=== PATIENT | male | born 1990 | race Native Hawaiian/Other Pacific Islander ===

== ENCOUNTER 2017-08-31 12:14 | Outpatient (CLI) | payer OTHER ==
[2017-08-31 13:10] LABS: HEMATOCRIT 47.2 % (36-54); HEMOGLOBIN 15.5 g/dL (14.0-18.0); LYMPHOCYTES % (AUTO) 42.1 % (20.5-51.5); MEAN CORPUSCULAR HEMOGLOBIN 29 pg (27-31); MEAN CORPUSCULAR HGB CONC 33 % (32-36); MEAN CORPUSCULAR VOLUME 89 fL (79.0-98.0); NEUTROPHILS % (AUTO) 46.5 % (40.0-70.0); PLATELET COUNT (AUTO) 238 K/uL (130-430); RED BLOOD CELL COUNT(AUTO) 5.29 MIL/uL (4.2-6.2); RED CELL DISTRIBUTION WIDTH 11.4 % (9.0-15.0); WHITE BLOOD COUNT (AUTO) 6.5 K/uL (4.8-10.8)
[2017-08-31 13:11] LABS: BASOPHILS % (AUTO) 0.3 % (0.0-2.0); EOSINOPHILS # (AUTO) 0.2 K/uL (0.0-0.4); EOSINOPHILS % (AUTO) 2.5 % (0.0-4.0); LYMPHOCYTES # (AUTO) 2.8 K/uL (1.0-5.5); MONOCYTES # (AUTO) 0.6 K/uL (0.0-1.0); MONOCYTES % (AUTO) 8.6 % (1.7-9.3); NEUTROPHILS # (AUTO) 2.9 K/uL (1.8-7.7)
[2017-08-31 14:27] LABS: POTASSIUM 3.9 mmol/L (3.5-5.1)
[2017-08-31 14:28] LABS: ALBUMIN 3.7 g/dL (3.4-4.8); CALCIUM 9.1 mg/dL (8.4-11.0); CREATININE 0.77 mg/dL (0.55-1.30); TOTAL BILIRUBIN 0.5 mg/dL (0.0-1.0)
[2017-08-31 14:40] LABS: THYROID STIMULATING HORMONE 1.62 uIu/mL (0.34-4.82)
== END 2017-08-31 19:37 | disposition home or self-care (01) ==
LOC: SLB 12:14
PROVIDERS: ATTEND Family Medicine
DX: H66.001 Acute suppurative otitis media without spontaneous rupture of ear drum, right ear (principal); R79.89 Other specified abnormal findings of blood chemistry
CPT/HCPCS: 36415; 80053; 80061; 84443-TC; 85025; 86592; 87491; 87591

== ENCOUNTER 2018-03-05 12:13 | Outpatient (CLI) | payer OTHER ==
[2018-03-05 13:10] LABS: HEMATOCRIT 44.8 % (36-54); HEMOGLOBIN 15.3 g/dL (14.0-18.0); MEAN CORPUSCULAR HEMOGLOBIN 31 pg (27-31); MEAN CORPUSCULAR HGB CONC 34 % (32-36); MEAN CORPUSCULAR VOLUME 90 fL (79.0-98.0); PLATELET COUNT (AUTO) 253 K/uL (130-430); RED BLOOD CELL COUNT(AUTO) 4.98 MIL/uL (4.2-6.2); RED CELL DISTRIBUTION WIDTH 12.5 % (9.0-15.0); WHITE BLOOD COUNT (AUTO) 16.9 K/uL (4.8-10.8)
[2018-03-05 13:44] LABS: CALCIUM 9.1 mg/dL (8.4-11.0); CREATININE 0.73 mg/dL (0.55-1.30); POTASSIUM 4.2 mmol/L (3.5-5.1)
[2018-03-05 13:49] LABS: ALBUMIN 3.4 g/dL (3.4-4.8)
[2018-03-05 13:52] LABS: BAND % (MANUAL) 6 % (0-6); BASOPHILS % (MANUAL) 0 % (0-2); EOSINOPHILS % (MANUAL) 0 % (0-7); LYMPHOCYTES % (MANUAL) 14 % (20-46); MONOCYTES % (MANUAL) 9 % (0-11)
[2018-03-07 08:58] LABS: HEPATITIS C VIRUS AB <0.1 s/co ratio (0.0-0.9)
== END 2018-03-05 21:25 | disposition home or self-care (01) ==
LOC: SLB 12:13
PROVIDERS: ATTEND Family Medicine
DX: N43.2 Other hydrocele (principal)
CPT/HCPCS: 36415; 76870-TC; 80053; 80061; 85007; 85027; 86308-TC; 86803

== ENCOUNTER 2018-06-06 07:15 | Day surgery (SDC) | payer OTHER ==
[2018-06-01 17:39] LABS: BASOPHILS % (AUTO) 0.5 % (0.0-2.0); EOSINOPHILS # (AUTO) 0.2 K/uL (0.0-0.4); EOSINOPHILS % (AUTO) 2.4 % (0.0-4.0); HEMATOCRIT 45.3 % (36-54); HEMOGLOBIN 15.1 g/dL (14.0-18.0); LYMPHOCYTES # (AUTO) 2.7 K/uL (1.0-5.5); LYMPHOCYTES % (AUTO) 38.4 % (20.5-51.5); MEAN CORPUSCULAR HEMOGLOBIN 30 pg (27-31); MEAN CORPUSCULAR HGB CONC 33 % (32-36); MEAN CORPUSCULAR VOLUME 89 fL (79.0-98.0); MONOCYTES # (AUTO) 0.5 K/uL (0.0-1.0); MONOCYTES % (AUTO) 7.6 % (1.7-9.3); NEUTROPHILS # (AUTO) 3.7 K/uL (1.8-7.7); NEUTROPHILS % (AUTO) 51.1 % (40.0-70.0); PLATELET COUNT (AUTO) 248 K/uL (130-430); RED BLOOD CELL COUNT(AUTO) 5.08 MIL/uL (4.2-6.2); RED CELL DISTRIBUTION WIDTH 12.7 % (9.0-15.0); WHITE BLOOD COUNT (AUTO) 7.1 K/uL (4.8-10.8)
[~2018-06-06] VITALS: Ht 172.7 cm; Wt 63.5 kg
[2018-06-06] MEDS ORDERED: fentaNYL CITRATE/PF 100 MCG/2 ML AMP IVP PRN ×2 (09:30)
[2018-06-06] MEDS ORDERED: ONDANSETRON HCL 4 MG/2 ML VIAL IVP PRN ×2 (09:30→11:00)
[2018-06-06] MEDS ORDERED: ONDANSETRON HCL 4 MG/2 ML VIAL ONE (10:45)
[2018-06-06] MEDS ORDERED: SEVOFLURANE 15 MIN GAS INH ONE (10:45)
[2018-06-06] MEDS ORDERED: NS 1000 ML IV.SOLN IV ONE (10:45)
[2018-06-06] MEDS ORDERED: LR 1,000 ML IV.SOLN IV ONE (10:45)
[2018-06-06] MEDS ORDERED: BUPIVACAINE /EPINEPHRINE/PF 0.25% 30 ML VIAL INJ ONE (10:45)
[2018-06-06] MEDS ORDERED: fentaNYL CITRATE/PF 100 MCG/2 ML AMP ONE ×2 (10:45→10:49)
[2018-06-06] MEDS ORDERED: NEOSTIGMINE METHYLSULFATE 1 MG/ML, 10 ML VIAL ONE (10:45)
[2018-06-06] MEDS ORDERED: GLYCOPYRROLATE 0.2 MG/ML VIAL ONE (10:45)
[2018-06-06] MEDS ORDERED: ROCURONIUM BROMIDE 10 MG/ML (ZEMURON) ONE (10:45)
[2018-06-06] MEDS ORDERED: PHENYLEPHRINE HCL 10 MG/ML VIAL (NEOSYNEPHRINE) ONE (10:45)
[2018-06-06] MEDS ORDERED: DEXAMETHASONE SOD PHOSPHATE 4 MG/ML VIAL ONE (10:45)
[2018-06-06] MEDS ORDERED: PROPOFOL 200MG/ 20ML VIAL (DIPRIVAN) IV ONE (10:45)
[2018-06-06] MEDS ORDERED: MIDAZOLAM HCL 5 MG/ML VIAL (VERSED) IV ONE (10:45)
[2018-06-06] MEDS ORDERED: HYDROcodone/ACETAMIN 5-325 MG TAB (NORCO/ VICODIN) PO PRN (11:00)
[2018-06-06] MEDS ORDERED: ONDANSETRON 4 MG ODT TAB PO PRN (11:00)
[2018-06-06 11:35] VITALS: BP_SYST 131
[2018-06-06] MEDS ORDERED: HYDROcodone/ACETAMIN 5-325 MG TAB (NORCO/ VICODIN) ONE (11:38)
== END 2018-06-06 14:08 | disposition home or self-care (01) ==
LOC: SDS 07:15 → SMU 07:16 → SDS 14:08
PROVIDERS: ATTEND Otolaryngology
DX: J35.01 Chronic tonsillitis (principal)
CPT/HCPCS: 36415; 42826; 85025; 88304; J1100; J2250; J2370; J2405; J2704; J2710; J3010; J3490 ×2; J7030; J7120